=== PATIENT | female | born 1935 | race Caucasian/White ===

== ENCOUNTER 2023-10-15 12:48 | Inpatient (IN) | payer OTHER, BC ==
[~2023-10-15] VITALS: Ht 149.9 cm; Wt 40.8 kg
[2023-10-15 13:07] VITALS: BP 114/60; PULSE 88; RESP 20; TEMP 97; O2SAT 97
[2023-10-15] MEDS ORDERED: PIPERACILLIN/TAZOBACTAM 3.375 GM VIAL IV ONE (14:09)
[2023-10-15] MEDS: NACL 0.9% 1,000 ML IV SCH ×2 (14:20→17:57)
[2023-10-15] MEDS: PIPERACILLIN/TAZOBACTAM 3.375 GM in DEXT 5% MINI-BAG PLUS 50 ML IV ONE (14:21)
[2023-10-15 14:29] LABS: BASOPHILS % (AUTO) 0.1 % (0.0-2.0); EOSINOPHILS % (AUTO) 0.7 % (0.0-4.0); HEMATOCRIT 35.6 % (36-48); HEMOGLOBIN 11.9 g/dL (12.0-16.0); LYMPHOCYTES # (AUTO) 0.2 K/uL (2.5-16.5); MEAN CORPUSCULAR HEMOGLOBIN 33 pg (27-31); MEAN CORPUSCULAR HGB CONC 33 g/dL (33-37); MEAN CORPUSCULAR VOLUME 99.6 fL (80-94); MONOCYTES % (AUTO) 0.8 % (1.7-9.3); NEUTROPHILS # (AUTO) 2.7 K/uL (1.8-7.7); NEUTROPHILS % (AUTO) 92.4 % (42.2-75.2); PLATELET COUNT (AUTO) 181 K/uL (140-450); RED BLOOD CELL COUNT(AUTO) 3.57 MIL/uL (4.20-5.40); RED CELL DISTRIBUTION WIDTH 16.2 % (11.6-13.7)
[2023-10-15 14:44] LABS: ANION GAP 20.2 (8-16); CALCIUM 8.9 mg/dL (8.5-10.1); CARBON DIOXIDE 20.1 mmol/L (21-32); CHLORIDE 101 mmol/L (98-107); CREATININE 1.2 mg/dL (0.6-1.3); GLUCOSE 103 mg/dL (74-106); POTASSIUM 5.3 mmol/L (3.5-5.1); SODIUM SERUM 136 mmol/L (136-145); UREA NITROGEN, BLOOD 34 mg/dL (7-18)
[2023-10-15 14:49] LABS: INR 1.09 (0.8-1.2); PARTIAL THROMBOPLASTIN TIME 24.1 secs (22-35.6); PROTHROMBIN TIME 11.4 secs (10.8-13.4)
[2023-10-15 14:53] LABS: ALANINE AMINOTRANSFERASE 26 U/L (12-78); ALBUMIN 2.7 g/dL (3.4-5.0); ALKALINE PHOSPHATASE 232 U/L (50-136); ASPARTATE AMINOTRANSFERASE 49 U/L (15-37); BILIRUBIN,DIRECT 0.2 mg/dL (0.0-0.3); TOTAL BILIRUBIN 0.6 mg/dL (0.0-1.0); TOTAL PROTEIN, SERUM 6.8 g/dL (6.4-8.2)
[2023-10-15 15:03] LABS: LACTIC ACID 7.9 mmol/L (0.4-2.0)
[2023-10-15] MEDS ORDERED: ASPI-1822 PO (17:21)
[2023-10-15] MEDS ORDERED: METO-485 PO (17:21)
[2023-10-15] MEDS ORDERED: [UNRECOGNIZED DRUG - CODE] PO (17:21)
[2023-10-15] MEDS ORDERED: METO50TE2 PO (17:21)
[2023-10-15] MEDS ORDERED: SENN-72 PO (17:21)
[2023-10-15] MEDS ORDERED: POTA10TA70 PO (17:21)
[2023-10-15] MEDS ORDERED: PROC-87 PO (17:21)
[2023-10-15] MEDS ORDERED: MELATONIN 3 MG TAB PO PRN (17:30)
[2023-10-15] MEDS ORDERED: ACETAMINOPHEN 325 MG TAB PO PRN (17:30)
[2023-10-15] MEDS ORDERED: POTASSIUM CHLORIDE 10 MEQ TABER PO PRN (17:30)
[2023-10-15] MEDS ORDERED: MORPHINE SULFATE 2 MG/ML SYR IVP PRN (17:30)
[2023-10-15] MEDS ORDERED: MAG SULF 2000 MG/WATER PREMIX 50 ML IV PRN (17:30)
[2023-10-15] MEDS ORDERED: POLYETHYLENE GLYCOL 17 GM/PKT PO PRN (17:30)
[2023-10-15] MEDS ORDERED: HYDROcodone/APAP 5/325 MG 1 TAB TAB PO PRN (17:30)
[2023-10-15] MEDS ORDERED: VANCOMYCIN PER PHARMACY MC PRN (17:45)
[2023-10-15 18:09] LABS: APPEARANCE,URINE CLEAR (CLEAR); BILIRUBIN,URINE NEGATIVE (NEGATIVE); BLOOD, URINE TRACE-I (NEGATIVE); COLOR,URINE YELLOW (YELLOW); LEUKOCYTE ESTERASE ,URINE TRACE (NEGATIVE); NITRITE, URINE NEGATIVE (NEGATIVE); PROTEIN,URINE 2+ (NEGATIVE); UGLUCOSE NEGATIVE (NEGATIVE); UROBILINOGEN,URINE 0.2 EU/dL (0.2 - 1)
[2023-10-15 19:23] LABS: BACTERIA,URINE FEW /HPF (None Seen); MUCUS,URINE None Seen /LPF (None Seen); RBC,URINE 0-5 /HPF (0-5); WBC,URINE 0-5 /HPF (0-5)
[2023-10-15 19:24] LABS: TRICHOMONAS,URINE None Seen /HPF (None Seen); WHITE BLOOD CELL CASTS,URINE None Seen /LPF (None Seen); YEAST,URINE None Seen /HPF (None Seen)
[2023-10-15] MEDS: VANCOMYCIN 500 MG in DEXTROSE 5% 100 ML IV SCH (20:24)
[2023-10-15] MEDS ORDERED: PIPERACILLIN/TAZOBACTAM 2.25 GM VIAL IV ONE (21:44)
[2023-10-15] MEDS: PIPERACILLIN/TAZOBACTAM 2.25 GM in DEXTROSE 5% 50 ML IV SCH (21:58)
[2023-10-15] MEDS ORDERED: CRUSHER, PILL MC ONE (22:11)
[2023-10-15] MEDS: MIDODRINE 5 MG TAB PO SCH (22:16)
[2023-10-15] MEDS: ONDANSETRON 4 MG/2 ML VIAL IVP PRN (22:37)
[2023-10-16] VITALS (7 sets, daily range): BP systolic 93–119; BP diastolic 55–78; PULSE 64–120; RESP 18–27; TEMP 97.1–99.4; O2SAT 93–99
[2023-10-16] MEDS: NACL 0.9% 1,000 ML IV ONE ×2 (00:59→07:11)
[2023-10-16 01:26] LABS: LACTIC ACID 5.7 mmol/L (0.4-2.0)
[2023-10-16] MEDS: PIPERACILLIN/TAZOBACTAM 2.25 GM VIAL IV ONE (02:46)
[2023-10-16 06:28] LABS: ALANINE AMINOTRANSFERASE 26 U/L (12-78); ALBUMIN 2.3 g/dL (3.4-5.0); ALKALINE PHOSPHATASE 189 U/L (50-136); ANION GAP 22.6 (8-16); ASPARTATE AMINOTRANSFERASE 62 U/L (15-37); CALCIUM 7.8 mg/dL (8.5-10.1); CARBON DIOXIDE 15.6 mmol/L (21-32); CHLORIDE 102 mmol/L (98-107); CREATININE 1.7 mg/dL (0.6-1.3); GLUCOSE 105 mg/dL (74-106); MAGNESIUM 2.2 mg/dL (1.8-2.4); PHOSPHORUS 4.4 mg/dL (2.5-4.9); POTASSIUM 5.2 mmol/L (3.5-5.1); SODIUM SERUM 135 mmol/L (136-145); TOTAL BILIRUBIN 0.7 mg/dL (0.0-1.0); TOTAL PROTEIN, SERUM 6.1 g/dL (6.4-8.2); UREA NITROGEN, BLOOD 39 mg/dL (7-18)
[2023-10-16 07:05] LABS: BASOPHILS # (AUTO) 0.1 K/uL (0.00-0.22); BASOPHILS % (AUTO) 0.7 % (0.0-2.0); EOSINOPHILS # (AUTO) 0.1 K/uL (0-0.4); EOSINOPHILS % (AUTO) 0.6 % (0.0-4.0); HEMATOCRIT 35.4 % (36-48); HEMOGLOBIN 11.9 g/dL (12.0-16.0); LYMPHOCYTES # (AUTO) 0.1 K/uL (2.5-16.5); LYMPHOCYTES % (AUTO) 1.6 % (20.5-51.1); MEAN CORPUSCULAR HEMOGLOBIN 33 pg (27-31); MEAN CORPUSCULAR HGB CONC 34 g/dL (33-37); MONOCYTES # (AUTO) 0.6 K/uL (0.8-1.0); MONOCYTES % (AUTO) 6.7 % (1.7-9.3); NEUTROPHILS # (AUTO) 7.9 K/uL (1.8-7.7); NEUTROPHILS % (AUTO) 90.4 % (42.2-75.2); PLATELET COUNT (AUTO) 164 K/uL (140-450); RED BLOOD CELL COUNT(AUTO) 3.58 MIL/uL (4.20-5.40); RED CELL DISTRIBUTION WIDTH 15.9 % (11.6-13.7); WHITE BLOOD COUNT (AUTO) 8.7 K/uL (4.8-10.8)
[2023-10-16] MEDS: PANTOPRAZOLE 40 MG TABEC PO SCH (09:18)
[2023-10-17] VITALS: BP 109/70; PULSE 115; PULSE 120; RESP 19; TEMP 98.8; O2SAT 97
[2023-10-17 04:00] VITALS: BP 121/92; PULSE 115; PULSE 120; RESP 18; TEMP 98.2; O2SAT 95
[2023-10-17 06:36] LABS: BASOPHILS % (AUTO) 0.4 % (0.0-2.0); EOSINOPHILS % (AUTO) 0.4 % (0.0-4.0); HEMATOCRIT 36.2 % (36-48); HEMOGLOBIN 12.3 g/dL (12.0-16.0); LYMPHOCYTES % (AUTO) 10.5 % (20.5-51.1); MEAN CORPUSCULAR HEMOGLOBIN 33 pg (27-31); MEAN CORPUSCULAR HGB CONC 34 g/dL (33-37); MEAN CORPUSCULAR VOLUME 97.3 fL (80-94); MONOCYTES # (AUTO) 0.7 K/uL (0.8-1.0); MONOCYTES % (AUTO) 7.1 % (1.7-9.3); NEUTROPHILS # (AUTO) 8.1 K/uL (1.8-7.7); NEUTROPHILS % (AUTO) 81.6 % (42.2-75.2); PLATELET COUNT (AUTO) 145 K/uL (140-450); RED BLOOD CELL COUNT(AUTO) 3.72 MIL/uL (4.20-5.40); RED CELL DISTRIBUTION WIDTH 16.2 % (11.6-13.7)
[2023-10-17 07:27] LABS: ALANINE AMINOTRANSFERASE 31 U/L (12-78); ALBUMIN 2.2 g/dL (3.4-5.0); ALKALINE PHOSPHATASE 131 U/L (50-136); ANION GAP 19.1 (8-16); ASPARTATE AMINOTRANSFERASE 61 U/L (15-37); CALCIUM 6.7 mg/dL (8.5-10.1); CARBON DIOXIDE 15.4 mmol/L (21-32); CHLORIDE 105 mmol/L (98-107); CREATININE 1.6 mg/dL (0.6-1.3); GLUCOSE 142 mg/dL (74-106); MAGNESIUM 2.1 mg/dL (1.8-2.4); PHOSPHORUS 4.6 mg/dL (2.5-4.9); POTASSIUM 4.5 mmol/L (3.5-5.1); SODIUM SERUM 135 mmol/L (136-145); TOTAL BILIRUBIN 0.7 mg/dL (0.0-1.0); TOTAL PROTEIN, SERUM 5.9 g/dL (6.4-8.2); UREA NITROGEN, BLOOD 54 mg/dL (7-18)
[2023-10-17 08:00] VITALS: BP 129/91; PULSE 124; PULSE 128; RESP 16; TEMP 98.3; O2SAT 95
[2023-10-17] MEDS: VANCOMYCIN 500 MG in DEXTROSE 5% 100 ML IV SCH (11:17)
[2023-10-17 12:00] VITALS: BP 129/75; PULSE 109; PULSE 125; RESP 17; TEMP 98.3; O2SAT 98
[2023-10-17 20:59] LABS: CHLORIDE,URINE RANDOM 43 mmol/L (110-250); URINE SODIUM, RANDOM 6 mmol/l (40-220)
== END 2023-10-17 14:15 | disposition home or self-care (01) | DRG 640 ==
LOC: MED 12:48 → MTU 17:36
PROVIDERS: ADMIT Family Medicine; ATTEND Family Medicine
DX: E86.0 Dehydration (principal); G93.41 Metabolic encephalopathy; N17.0 Acute kidney failure with tubular necrosis; C78.7 Secondary malignant neoplasm of liver and intrahepatic bile duct; R65.10 Systemic inflammatory response syndrome (SIRS) of non-infectious origin without acute organ dysfunction; C79.51 Secondary malignant neoplasm of bone; R18.0 Malignant ascites; E87.20 Acidosis, unspecified; C50.912 Malignant neoplasm of unspecified site of left female breast; C50.911 Malignant neoplasm of unspecified site of right female breast; D70.1 Agranulocytosis secondary to cancer chemotherapy; Z66 Do not resuscitate; T45.1X5A Adverse effect of antineoplastic and immunosuppressive drugs, initial encounter; Y92.89 Other specified places as the place of occurrence of the external cause; Z88.8 Allergy status to other drugs, medicaments and biological substances; Z79.82 Long term (current) use of aspirin; Z79.899 Other long term (current) drug therapy; Z88.5 Allergy status to narcotic agent; K21.9 Gastro-esophageal reflux disease without esophagitis
CPT/HCPCS: 36415; 70450; 71045; 76770; 80048; 80053; 80076; 80202; 81001; 82436; 82570; 83605; 83735; 83880; 84100; 84132; 84300; 84484; 85025; 85610; 85730; 87040; 87081; 87086; 93005; 96365; 96367; 97110; 97530; 99291; J1644; J2405; J2543; J3370; J7060; Q0092